=== PATIENT | male | born 1955 | race Caucasian/White ===

== ENCOUNTER → 2017-11-29 10:40 | Outpatient (CLI) | payer OTHER, MEDICAID, SELFPAY ==
[2017-11-29 11:12] LABS: Appearance Urine UA CLEAR; Bilirubin Urine UA NEGATIVE (NEGATIVE); Color Urine UA YELLOW; Glucose Urine UA NEGATIVE (Normal); Ketones Urine UA NEGATIVE (NEGATIVE); Leukocyte Esterase Urine UA NEGATIVE (NEGATIVE); Nitrite Urine UA Negative (Negative); Occult Blood Urine UA NEGATIVE (Negative); Protein Urine UA NEGATIVE (Negative); Urobilinogen Urine UA 0.2 E.U./dL (0.2); pH Urine UA 6.5 (4.5-8.0)
[2017-11-29 11:18] LABS: Add Manual Diff / Slide Review NO; Eosinophils Percent Auto 1.9 % (2-4); Hematocrit 48.2 % (41-53); Hemoglobin 16.5 g/dL (13.5-17.5); Lymphocytes Percent Auto 32.3 % (25-40); Mean Corpuscular HGB Conc 34.3 % (30-36); Mean Corpuscular Volume 93.3 fL (80-100); Monocytes Percent Auto 10.5 % (3-14); Neutrophils Absolute Auto 3700 /uL (3000-5900); Neutrophils Percent Auto 54.3 % (50-75); Platelet Count 287 X10^3/uL (150-400); Red Blood Cell Count 5.17 X10^6/uL (4.5-5.9); Red Cell Distribution Width 12.5 % (11.6-14.8); White Blood Cell Count 6.8 X10^3/uL (4.5-11.0)
[2017-11-29 11:27] LABS: Hemoglobin A1C% w Est Avg Glu 6.8 % (4.0-6.0)
[2017-11-29 12:20] LABS: Alanine Aminotransferase 191 IU/L (21-72); Albumin 4.7 g/dL (3.5-5.0); Alkaline Phosphatase 158 U/L (38-126); Aspartate Aminotransferase 123 IU/L (17-59); BUN Creatinine Ratio 17.8 (6-22); Bilirubin Total 0.7 mg/dL (0.2-1.3); Blood Urea Nitrogen 16 mg/dL (9-20); Calcium 9.6 mg/dL (8.4-10.2); Carbon Dioxide 33 mmol/L (22-32); Chloride 97 mmol/L (98-107); Cholesterol 218 mg/dL (140-199); Estimated Glomerular Filt Rate > 60.0 mL/min (>60); Globulin 4.5 g/dL (1.7-4.1); Glucose 165 mg/dL (80-110); HDL Cholesterol 42 mg/dL (40-60); HEMOLYSIS < 15 (0-50); LDL Cholesterol Calculated 153 mg/dL (<100); Sodium 138 mmol/L (137-145); Total Protein 9.2 g/dL (6.3-8.2); Triglycerides 115 mg/dL (35-150)
[2017-11-29 12:49] LABS: Thyroid Stimulating Hormone 1.37 uIU/mL (0.47-4.68)
[2017-11-29 14:47] LABS: Microalbumin Urine Random 0.6 mg/dL (0-1.6)
[2017-12-04 05:46] LABS: Hepatitis A Antibody IgM NONREACTIVE; Hepatitis B Core Antibody IgM NONREACTIVE; Hepatitis B Surface Antigen NONREACTIVE; Hepatitis C Antibody REACTIVE
== END ==
PROVIDERS: Physician Assistant; Visit Provider Family Medicine
DX: I10 Essential (primary) hypertension (principal); E78.5 Hyperlipidemia, unspecified; R73.9 Hyperglycemia, unspecified; R94.5 Abnormal results of liver function studies; E11.9 Type 2 diabetes mellitus without complications; E78.2 Mixed hyperlipidemia; R74.8 Abnormal levels of other serum enzymes
CPT/HCPCS: 36415; 80053; 80061; 80074; 81003; 82043; 82570; 83036; 84443; 85025

== ENCOUNTER 2017-12-11 18:28 | Emergency (ER) | payer OTHER, MEDICAID, SELFPAY ==
[2017-12-11 18:30] VITALS: BP 129/87; PULSE 75; RESP 18; TEMP 36.9; O2SAT 92
[2017-12-11 19:39] VITALS: PULSE 88
--- NOTE | 2017-12-11 19:42 | PC.NURSE ---
positive cms. pt was using a chisel to carve wood at home. brand new chisel. chisel slipped and went into pt left hand.
--- NOTE | 2017-12-11 19:54 | ED_ITS ---
HPI - Extremity Injury (Upper) General Chief Complaint: Extremity Injury, Upper Stated Complaint: LACERATION LEFT HAND Time Seen by Provider: 12/11/17 19:32 Source: patient Mode of arrival: ambulatory Limitations: no limitations History of Present Illness HPI narrative: Patient is a 62-year-old male who presents with a left hand injury and laceration. He was carving would of when the chisel slipped into his left hand. It happened about an hour and half ago will not stop bleeding. No numbness no tingling of the decreased range of motion. Not on blood thinners. complaint: injury to: left Handedness: right Exacerbating factors: none Related Data Home Medications Medication Instructions Recorded Confirmed aspirin 325 mg PO QDAY #0 02/03/16 11/29/17 Previous Rx's Medication Instructions Recorded amlodipine 10 mg tablet 10 mg PO QDAY #30 tab 11/29/17 metoprolol succinate ER 25 mg 25 mg PO QDAY #30 tab 11/29/17 tablet,extended release 24 hr lisinopril 20 1 tab PO DAILY #90 tab 12/10/17 mg-hydrochlorothiazide 25 mg tablet Allergies Allergy/AdvReac Type Severity Reaction Status Date / Time No Known Drug Allergies Allergy Unknown Verified 11/29/17 09:26 Review of Systems Review of Systems GENERAL: Denies chills,fever HEENT: Denies throat pain RESPIRATORY: Denies dyspnea, cough, wheezing CARDIOVASCULAR: Denies chest pain, palpitations GASTROINTESTINAL: Denies nausea, vomiting MUSCULOSKELETAL: Denies extremity pain, injury SKIN: See HPI NEUROLOGIC: Denies weakness, dizziness, headache, numbness 8 point review of systems is negative except for those stated above and HPI PFSH Medical History Diabetes (Chronic 2014) Hypertension (Chronic Unknown) PTSD (post-traumatic stress disorder) (Chronic 1977) Social History Smoking Status: Former smoker Tobacco: How many years used: 40 alcohol intake: current (1 beer per day) Exam Initial Vital Signs Initial Vital Signs: Vital Signs Temperature 98.5 F 12/11/17 18:30 Pulse Rate 75 12/11/17 18:30 Respiratory Rate 18 12/11/17 18:30 Blood Pressure 129/87 H 12/11/17 18:30 Pulse Oximetry 92 12/11/17 18:30 GENERAL: Well-appearing, well-nourished and in no acute distress. CARDIOVASCULAR: peripheral pulses in tact, cap refill <2 sec RESPIRATORY: No respiratory distress, speaks in full sentences without difficulty EXTREMITIES: Normal range of motion, no clubbing or edema. Neurovascularly intact NEUROLOGICAL: Cranial nerves II through XII grossly intact. Normal gait and speech. SKIN: Left palm laceration centrally located proximally near rate 1.5 cm Skin Hand Left Front: 2 1. 1.5cm laceration. deep structures intact. Able flex and extend wrist moving all fingers. Neurovascularly intact. Procedures Laceration Repair Laceration 1: Site: hand Side (If applicable): left Size (cm): 1.5 Description: linear Local Anesthetic: lidocaine 1% Amount of anesthesia used (mL): 1 Pre-repair: wound explored, irrigated extensively and deep structures intact Skin layer closed with: nylon Size (cm): 4-0 Number of sutures: 1 Technique: simple, interrupted Course Vital Signs - 8 hr 12/11/17 18:30 12/11/17 19:39 12/11/17 20:07 Temperature 98.5 F Pulse Rate 75 68 Pulse Rate [Left Radial] 88 Respiratory Rate 18 16 Blood Pressure 129/87 H 129/88 H Pulse Oximetry 92 99 Discharge Plan Departure Patient Disposition: Home, Self-Care Clinical Impression: Laceration of hand, left Discharge Date/Time: 12/11/17 20:12 Interventions: ED Discharge Assessment Last Done: 12/11/17 20:07 Instructions: DI for Laceration Repair Activity Restrictions/Additional Instructions: 1. Have your suture removed in 5-7 days, you may go to walk-in clinic, return to the ER or call your primary care physician. 2. No soaking in water including dishes, bathtubs, Lakes, swimming pools etc 3. Signs of infection include, but not limited to, increased redness, increased swelling, increased pain, fever and purulent drainage, if the symptoms should arise, you may need an antibiotic and you should have a reevaluation either by your primary care provider or by the emergency department. Prescriptions: No Action metoprolol succinate [Toprol XL] 25 mg tablet extended release 24 hr 25 mg PO QDAY Qty: 30 RF: 5 amlodipine 10 mg tablet 10 mg PO QDAY Qty: 30 RF: 5 aspirin 325 MG tablet,delayed release (DR/EC) 325 mg PO QDAY Qty: 0 RF: 0 lisinopril-hydrochlorothiazide 20-25 mg tablet 1 tab PO DAILY Qty: 90 RF: 0 Referrals: Pascale Triplett PA-C [Primary Care Provider] - Yin Garcia DO [Physician] -
[2017-12-11 20:07] VITALS: BP 129/88; PULSE 68; RESP 16; O2SAT 99
== END 2017-12-11 20:12 | disposition home or self-care (01) ==
PROVIDERS: Emergency Provider Emergency Medicine; PCP Physician Assistant
DX: S61.412A Laceration without foreign body of left hand, initial encounter (principal); W26.0XXA Contact with knife, initial encounter
CPT/HCPCS: 12001; 99282